=== PATIENT | female | born 1960 | race Caucasian/White ===

== ENCOUNTER 2017-10-22 19:38 | Emergency (ER) | payer SELFPAY ==
--- OUTSIDE RECORDS SUMMARY | 2017-10-22 19:40 | XMS REPORT ---
:1960 [facility] [address] [place] [address] [address] [place] [address] Care Team Providers Name Role Phone UNKNOWN, REFFERING Primary Care Provider Unavailable SCARLET LOPEZ M.D. Unavailable Unavailable Problems This patient has no known problems. Allergies, Adverse Reactions, Alerts This patient has no known allergies or adverse reactions. Medications This patient has no known medications. Encounters Start End Encounter Admission Attending Care Care Encounter Date/Time Date/Time Type Type Clinicians Facility Department ID 2017-08-02 2017-08-02 Outpatient [facility] [id number] 07:03:00 07:03:00 Gypsy NOVAK Results Test Description Test Time Test Comments Text Results Atomic Results Result Comments XR CHEST 1 VIEW 2017-08-04 17:45:53 Portable chest one view.HISTORY: Chest painLocation R 16COMMENT: No comparison. No pneumothorax. Small density in the leftmidlung field. Minimal atelectasis at the right base. No pleuraleffusion. The cardiac silhouette is unremarkable.Skeletal structures areunremarkable.. IMPRESSION: Small density in the left midlung field may representinfiltrate, atelectasis or nodule. Consider chest 2 views to evaluate.Minimal atelectasis at the right base.. Comprehensive Metabolic Panel 2017-08-03 07:09:00 Test Item Value Reference Range Comments Sodium (test code=NA) 138 mmol/L 135-145 Potassium (test code=K) 4.2 mmol/L 3.5-5.1 Chloride (test code=CL) 101 mmol/L 98-105 Carbon Dioxide (test 26 mmol/L 22-29 code=CO2) Glucose (test code=GLU) 124 mg/dL 70-115 Blood Urea Nitrogen (test 8 mg/dL 6-20 code=BUN) Creatinine (test code=CREAT) 0.9 mg/dL 0.5-0.9 Calcium (test code=CA) 8.4 mg/dL 8.3-10.5 Prot Total (test code=TP) 5.3 g/dL 6.4-8.3 Albumin (test code=ALB) 3.5 g/dL 3.5-5.2 A/G Ratio (test 1.9 Ratio code=AGRATIO) Globulin (test code=GLOB) 1.8 2.9-3.1 Bili Total (test code=TBIL) 0.7 mg/dL 0.1-0.9 Alk Phos (test code=APHOS) 39 U/L 35-104 AST (test code=AST) 16 U/L 1-32 ALT (test code=ALT) 14 U/L 1-33 BUN/Creatinine Ratio (test 8.9 code=BCRATIO) Anion Gap (test code=AGAP) 11 mmol/L 7-16 Estimated GFR (test >60 mL/min/1.73m2 eGFR (estimated Glomerular code=GFR) Filtration Rate) is an estimated value,calculated from the patient's serum creatinine using the MDRD equation.It is NOT the patient's actual GFR. The eGFR provides a more clinicallyuseful measure of kidney disease than serum creatinine alone.This calculation takes sex and race into account, if the informationis provided. If the race is not provided, and the patient isAfrican-Kittitian, multiply by 1.212. If sex is not provided, and thepatient is female, multiply by 0.742. Results for patients <18 years ofage have not been validated by the MDRD study and should be interpretedwith caution.eGFR Result Interpretation:eGFR > or=60 is in the Normal RangeeGFR < 60 may mean kidney diseaseeGFR < 15 may mean kidney failureRanges recommended by the National Kidney Foundation,http://nkdep.nih.go v CBC with [id number] 06:56:00 Test Item Value Reference Range Comments WBC (test code=WBC) 8.4 K/cumm 4.4-10.5 RBC (test code=RBC) 3.62 M/cumm 3.75-5.20 Hemoglobin (test code=HGB) 12.0 gm/dL 12.2-14.8 Hematocrit (test code=HCT) 36.5 % 36.5-44.4 MCV (test code=MCV) 100.8 fL 80-100 MCH (test code=MCH) 33.3 pg 27.0-32.5 MCHC (test code=MCHC) 33.0 g/dL 32.0-37.5 RDW (test code=RDW) 13.7 % 11.5-14.5 Platelet Count (test code=PLTCT) 196 K/cumm 140-440 MPV (test code=MPV) 8.5 fL Diff Method (test code=DIFFM) Auto Neutrophil (test code=NEUT) 85.1 % 36-70 Lymphocyte (test code=LYMPH) 9.9 % 12-44 Monocyte (test code=MONO) 3.9 % 0-11 Eosinophil (test code=EOS) 0.8 % 0-7 Basophil (test code=BASO) 0.2 % 0-2 Neutro Abs (test code=ANEUT) 7.1 K/cumm 1.6-7.4 Lymph Abs (test code=ALYMPH) 0.8 K/cumm 0.5-4.6 [place] Abs (test code=AMONO) 0.3 K/cumm 0.0-1.2 Eos Abs (test code=AEOS) 0.07 K/cumm 0.00-0.74 Baso Abs (test code=ABASO) 0.0 K/cumm 0.00-0.21 Macrocytosis (test code=MACRO) Slight POC Glucose, [id number] 19:10:00 Test Item Value Reference Range Comments POC Glucose (test 140 mg/dL 70-115 If you consider your patient code=POCGLUC) critically ill, the [place] Accu-Chek InformII metershould not be used for Glucose determinations.Draw a venous Glucose and send to the Main Lab for Analysis.
--- NOTE | 2017-10-22 22:02 | ER ---
Nurse's Notes [facility] Name: Jo Dean Age: 56 yrs Sex: Female : 1960 Arrival Date: 10/22/2017 Time: 19:40 Bed 26 Private MD: Diagnosis: Encounter for change or removal of surgical wound dressing Presentation: 10/22 19:45 Presenting complaint: Patient states: "I would like some help with my wound packing aj1 today, I'm a little bit nervous about it. I also have some discoloration around the wound that I don't think is normal" Reports she had surgery in July and had a BETHANY drain, these wounds tunneled to the BETHANY drain so they removed the drains on . Patient is currently taking Keflex for wound infections. She called and spoke with her surgeons office today and will start Bactrim and Minocyline tomorrow instead. Reports that she has been on a rotating antibiotic schedule, she had a wound culture sent on . Patient's surgeon is Dr. Galvin from [facility] in [place]. Transition of care: patient was not received from another setting of care. Onset of symptoms was October 22, 2017. Risk Assessment: Do you want to hurt yourself or someone else? Patient reports no desire to harm self or others. Initial Sepsis Screen: Does the patient meet any 2 criteria? No. Patient's initial sepsis screen is negative. Does the patient have a suspected source of infection? No. Patient's initial sepsis screen is negative. Care prior to arrival: None. 19:45 Method Of Arrival: Ambulatory aj1 19:45 Acuity: CLAUDE 3 aj1 Triage Assessment: 19:53 General: Appears in no apparent distress. comfortable, Behavior is calm, cooperative, aj1 appropriate for age. Pain: Complains of pain in back Pain currently is 6 out of 10 on a pain scale. Neuro: Level of Consciousness is awake, alert, obeys commands, Oriented to person, place, time, situation, Speech is normal, Facial symmetry appears normal. Cardiovascular: Patient's skin is warm and dry. Respiratory: Airway is patent Respiratory effort is even, unlabored, Respiratory pattern is regular, symmetrical. Historical: - Allergies: 19:53 No Known Allergies; aj1 - Home Meds: 19:53 Trokendi XR 50 mg oral cp24 1 cap once daily [Active]; metformin 500 mg Oral tab 1 tab aj1 2 times per day [Active]; spironolactone 25 mg Oral tab 1 tab once daily [Active]; Keflex 500 mg Oral cap 1 cap every 6 hours [Active]; Diflucan 100 mg Oral tab 1 tab once daily [Active]; - PSHx: 19:53 ; right knee surgery; Hernia repair; panelectomy; aj1 - Immunization history:: Flu vaccine is not up to date. - Social history:: Smoking status: Patient uses tobacco products, 3-4 cigarettes per day. - Ebola Screening: : Patient denies travel to an Ebola-affected area in the 21 days before illness onset. Screenin:20 Abuse screen: Denies threats or abuse. Denies injuries from another. Nutritional rv screening: No deficits noted. Tuberculosis screening: No symptoms or risk factors identified. Fall Risk None identified. Assessment: 10/23 00:01 General: Appears in no apparent distress. comfortable, Behavior is calm, cooperative, mb3 appropriate for age. Pain: Denies pain. Neuro: No deficits noted. Cardiovascular: No deficits noted. Respiratory: No deficits noted. Derm: Reports Wounds to bilateral hips, and base of back from surgery, asking for wound care. Packing removed and bandages replaced. Vital Signs: 10/22 19:53 BP 110 / 81; Pulse 89; Resp 18; Temp 98.7(O); Pulse Ox 97% on R/A; Weight 73.03 kg (R); aj1 Height 5 ft. 6 in. (167.64 cm) (R); 23:20 BP 113 / 77; Pulse 68; Resp 17; Pulse Ox 97% on R/A; rv 19:53 Body Mass Index 25.99 (73.03 kg, 167.64 cm) aj1 ED Course: 19:40 Patient arrived in ED. es 19:51 Triage completed. aj1 19:53 Arm band placed on Patient placed in waiting room, Patient notified of wait time. aj1 20:17 Esau Franklin, RN is Primary Nurse. mb3 20:37 Gen Bowie PA is PHCP. cp 20:37 Te Noriega MD is Attending Physician. cp 23:20 No provider procedures requiring assistance completed. rv 10/23 00:02 Patient did not have IV access during this emergency room visit. Dressings: mb3 non-adherent dressing 4X4s X 4; lumbar area, posterior aspect of right lateral abdomen and posterior aspect of left lateral abdomen idoform packing. 00:04 Patient has correct armband on for positive identification. mb3 Administered Medications: No medications were administered Outcome: 10/22 22:01 Discharge ordered by . beverly 10/23 00:02 Discharged to home ambulatory. mb3 Condition: stable Discharge instructions given to patient, Instructed on discharge instructions, follow up and referral plans. Demonstrated understanding of instructions, follow-up care. 00:04 Patient left the ED. mb3 Signatures: Shannon Franco, RN RN aj1 Jessica Garcia Corey, PA PA cp Esau Franklin, RN RN mb3 Paulino Aquino RN RN rv
--- NOTE | 2017-10-22 22:02 | EDPHYS ---
Physician Documentation [facility] Name: Jo Dean Age: 56 yrs Sex: Female : 1960 Arrival Date: 10/22/2017 Time: 19:40 Bed 26 Private MD: ED Physician Te Noreiga HPI: 10/22 20:49 This 56 yrs old Female presents to ER via Ambulatory with complaints of Wound cp Infection. 20:49 Patient presents to ED for recheck of: surgical wounds. The affected area is on the cp back and left hip and right hip. Previous treatment: The patient was initially treated yesterday, Treatment type: The patient's original treatment included irrigation, packing, given RXs for oral minocycline and Bactrim. Patient reports she has not started meds yet and is currently taking prescribed Keflex. 20:49 Patient reports she has been performing repacking of wounds and dressing changes at home but comes in today requesting assistance and inspection of wounds. Historical: - Allergies: 19:53 No Known Allergies; aj1 - Home Meds: 19:53 Trokendi XR 50 mg oral cp24 1 cap once daily [Active]; metformin 500 mg Oral tab 1 tab aj1 2 times per day [Active]; spironolactone 25 mg Oral tab 1 tab once daily [Active]; Keflex 500 mg Oral cap 1 cap every 6 hours [Active]; Diflucan 100 mg Oral tab 1 tab once daily [Active]; - PSHx: 19:53 ; right knee surgery; Hernia repair; panelectomy; aj1 - Immunization history:: Flu vaccine is not up to date. - Social history:: Smoking status: Patient uses tobacco products, 3-4 cigarettes per day. - Ebola Screening: : Patient denies travel to an Ebola-affected area in the 21 days before illness onset. ROS: 21:00 Constitutional: Negative for body aches, chills, fever, poor PO intake. cp 21:00 Cardiovascular: Negative for chest pain, edema, palpitations. cp 21:00 Respiratory: Negative for cough, shortness of breath, wheezing. 21:00 Abdomen/GI: Negative for abdominal pain, nausea, vomiting, and diarrhea. 21:00 Neuro: Negative for altered mental status, headache, weakness. 21:00 All other systems are negative. Exam: 20:05 Constitutional: The patient appears in no acute distress, alert, awake, comfortable, cp non-toxic, well developed, well nourished. 20:05 Head/Face: Normocephalic, atraumatic. cp 20:05 Eyes: Periorbital structures: appear normal, Conjunctiva: normal, no exudate, no injection, Lids and lashes: appear normal, bilaterally. 20:05 ENT: External ear(s): are unremarkable, Nose: is normal, Mouth: is normal, Posterior pharynx: is normal, airway is patent. 20:05 Chest/axilla: Inspection: normal. 20:05 Cardiovascular: Rate: normal, Rhythm: regular. 20:05 Respiratory: the patient does not display signs of respiratory distress, Respirations: normal, no use of accessory muscles, no retractions, no splinting, no tachypnea, labored breathing, is not present. 20:05 Abdomen/GI: Exam negative for discomfort, distension, guarding, Inspection: abdomen appears normal. 20:05 Skin: noted open wounds to bilateral hips and lower lumbar area with minimal erythema and no swelling. Packing removed from wounds and noted purulent drainage expressed. Vital Signs: 19:53 BP 110 / 81; Pulse 89; Resp 18; Temp 98.7(O); Pulse Ox 97% on R/A; Weight 73.03 kg (R); aj1 Height 5 ft. 6 in. (167.64 cm) (R); 23:20 BP 113 / 77; Pulse 68; Resp 17; Pulse Ox 97% on R/A; rv 19:53 Body Mass Index 25.99 (73.03 kg, 167.64 cm) aj1 MDM: 20:37 Patient medically screened. cp 21:00 Differential diagnosis: cellulitis, sepsis. cp 22:00 Data reviewed: vital signs, nurses notes, and as a result, I will discharge patient. cp 22:00 Counseling: I had a detailed discussion with the patient and/or guardian regarding: the cp historical points, exam findings, and any diagnostic results supporting the discharge/admit diagnosis, the need for outpatient follow up, primary surgeon for wound check, to return to the emergency department if symptoms worsen or persist or if there are any questions or concerns that arise at home. ED course: Wounds repacked and dressed. 10/22 20:48 Order name: Wound dressing: irrigate and repack wounds; Complete Time: 23:19 cp Administered Medications: No medications were administered Disposition: 10/23 00:30 Chart complete. cp 01:10 Co-signature as Attending Physician, Te Noriega MD. rn Disposition: 10/22/17 22:01 Discharged to Home. Impression: Encounter for change or removal of surgical wound dressing. - Condition is Stable. - Discharge Instructions: Dressing Change, Wound Packing. - Medication Reconciliation Form, Thank You Letter, Antibiotic Education, Prescription Opioid Use form. - Follow up: Private Physician; When: primary surgeon; Reason: as scheduled for wound care . - Problem is an ongoing problem. - Symptoms are unchanged. Signatures: Shannon Franco RN RN aj1 Te Noriega MD MD rn Page, Corey, PA PA cp Esau Franklin RN RN mb3 Corrections: (The following items were deleted from the chart) 00:04 10/22 22:01 10/22/2017 22:01 Discharged to Home. Impression: Encounter for change or mb3 removal of surgical wound dressing. Condition is Stable. Forms are Medication Reconciliation Form, Thank You Letter, Antibiotic Education, Prescription Opioid Use. Follow up: Private Physician; When: primary surgeon; Reason: as scheduled for wound care . Problem is an ongoing problem. Symptoms are unchanged. cp 10/23 20:13 20:05 Constitutional: The patient appears in no acute distress, alert, awake, cp comfortable, well developed, well nourished, cp 20:13 20:05 Head/Face: Normocephalic, atraumatic. cp cp 20:13 20:05 Eyes: Periorbital structures: appear normal, Conjunctiva: normal, no exudate, no cp injection, Lids and lashes: appear normal, bilaterally, cp 20:13 20:05 ENT: External ear(s): are unremarkable, Nose: is normal, Mouth: Lips: moist, Oral cp mucosa: moist, Posterior pharynx: is normal, airway is patent, cp 20:13 20:05 Chest/axilla: Inspection: normal, cp cp 20:13 20:05 Cardiovascular: Rate: normal, cp cp 20:13 20:05 Respiratory: the patient does not display signs of respiratory distress, cp Respirations: normal, no use of accessory muscles, no retractions, no splinting, no tachypnea, cp 20:13 20:05 Abdomen/GI: Exam negative for discomfort, distension, guarding, Inspection: cp abdomen appears normal, cp 20:13 20:05 Skin: noted open wounds lower lumbar area and bilateral hips with minimal cp erythema and no swelling. Noted packing in place with purulent drainage expressed. cp
[2017-10-23 00:28] VITALS: TEMP 98.7; O2SAT 97
[2017-10-23 00:29] VITALS: BP 113/77
== END 2017-10-23 00:04 | disposition home or self-care (01) ==
LOC: ER 19:38
DX: Z48.01 Encounter for change or removal of surgical wound dressing (principal); F17.210 Nicotine dependence, cigarettes, uncomplicated
CPT/HCPCS: 99281